=== PATIENT | female | born 1970 | race Caucasian/White ===

== ENCOUNTER 2019-05-12 13:19 | Inpatient (IN) ==
[2019-05-12] MEDS ORDERED: ACETAMINOPHEN 325 MG TAB PO PRN (16:19)
[2019-05-12] MEDS ORDERED: GLUCOSE 10 TABS/TUBE PO PRN (16:19)
[2019-05-12] MEDS ORDERED: CARBOHYDRATES FOR HYPOGLYCEMIA PO PRN (16:19)
[2019-05-12] MEDS ORDERED: GLUCAGON FOR INJ 1 MG VIAL SQ PRN (16:19)
[2019-05-12] MEDS ORDERED: GLUCOSE 40% GEL 15 GM TUBE PO PRN (16:19)
[2019-05-12] MEDS ORDERED: DEXTROSE 50% 50 ML SYRINGE IV PRN (16:19)
[2019-05-12] MEDS ORDERED: ONDANSETRON INJ 2 MG/ML 2 ML VIAL IV PRN (16:19)
[2019-05-12] MEDS ORDERED: PATIENT'S ALLERGY INFO NEEDS ENTERED SCH (16:30)
--- NOTE | 2019-05-12 16:45 | History & Physical Report ---
Date of Service May 12, 2019 Assessment & Plan (1) Seizure: -Admit to [facility] -Neurology consulted for 3 seizure like events which occurred within the past 24 hours, likely will need EEG -Seizure precautions -Patient reports never having seizure-like activity in the past, currently with postictal fatigue -Check EKG -CT of the head/brain being uploaded into PACS system for review -Check MRI brain with multiple seizure with history of hypertension, blurred vision -Checking CBC, PRP, A1c, LFT, lipids for completeness -Check tox screen (2) Hypertension: -Continue metoprolol and HCTZ (3) Obesity: -Diet and exercise to be encouraged upon discharge -BMI = 36 (4) Tobacco abuse disorder: -Patient very adamant about smoking a cigarette during her admission, I verbalized with her during our meeting that it would be against hospital policy, unsafe for her, and that she would not be walked out by a staff member off the premises to have a cigarette. (5) Fibromyalgia: - Has previously tried cymbalta but she reports "did not like the way it made me feel, it messed with my head" - Hold ibuprofen as was taking very high dose as outpatient routinely. (6) DVT prophylaxis: - Teds, ambulatory CODE: FULL Dispo: From home, discharge in 1-2 days. History of Present Illness Primary Care Provider: Vitaliy Hill This is a 49 yo F with PMHx of HTN, obesity, fibromyalgia, who presents as a direct admission from [facility] for acute onset of seizure disorder. Patient notes that she developed a blurred/fuzzy vision 1 night ago while she was working. 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 Patient notes that she was walking outside and developed acute onset of lightheadedness but does not remember much afterwards. This event was witnessed by a coworker who is not present. Patient was taken to the [place] [facility] where she was worked up with a CT of the head/brain which were reported to kee per ER attending from OSH. They were in the works with getting her bed placement at [facility], and [facility] due to [facility], but the patient left AMA as "it was taking too long". In reports from outside hospital it is likely that the patient wanted to smoke at that point in time and that is when she left AMA. Upon leaving she was at home with her , and had recurrence of her symptoms where she had issues with her vision and cannot remember anything afterwards. She was brought back by ambulance to the [facility] and has been transferred to our facility as they do not have neurology, no beds available at other facilities. She reports that she is very tired currently, but is sitting in bed reading without difficulty. She denies any headache, lightheadedness, dizziness visual disturbances, nausea, vomiting or other myalgias or pains compared to her baseline. She reports taking 600 to 800 mg of ibuprofen upwards of every 4 hours at home. She denies any GI bleeding hx. patient denies any history of seizure disorder in the past. She does run report that she has been struggling with high blood pressure intermittently over the last month. SBP = 160-180 over DBP = 100, she has been using metoprolol tartrate 100 mg twice daily and HCTZ as needed. her PCP has been concerned for renal issues, and has been scheduled for outpatient renal ultrasound for further evaluation. The patient is hungry and requesting chocolate milk, she is also very adamant that she needs to smoke a cigarette currently. She reports that "I will smoke a cigarette" and is unwilling to comply with hospital rules and use a nicotine patch despite my conversation with her-this included that [facility] is a smoke-free facility, it would be unsafe for her with history of seizures to walk outside the hospital and smoke a cigarette, and that she cannot have a family member walked her off the premises and then come back to complete her work-up for seizure. She in fact is so upset with me at the end of our conversation that she got up and walked into the bathroom, told me to leave, and will not open the door. I discussed with nursing that she is allowed to have a diet whenever she chooses to do so and that I will order a nicotine patch so that it is available if she chooses to use it. Allergies Allergy/AdvReac Type Severity Reaction Status Date / Time egg Allergy Unknown Unknown Verified 05/12/19 16:44 Home Medications Home Medications Medication Instructions Recorded Confirmed Type Trulicity 1.5 mg SUBCUT WK 05/12/19 05/12/19 History hydrochlorothiazide 25 mg PO DAILY PRN 05/12/19 05/12/19 History ibuprofen 600 mg PO Q6 PRN 05/12/19 05/12/19 History metoprolol tartrate 100 mg PO BID 05/12/19 05/12/19 History vit D3-folic [id number] 05/12/19 History Past Med/Surg History Family History (Updated 05/12/19 @ 16:42 by Astrid Lyles PA-C) Mother Breast cancer Grandfather (Paternal) Diabetes Father Cancer Social History (Updated 05/12/19 @ 16:43 by Astrid Lyles PA-C) Preferred Language: Bulgarian Communication Ability: Effective Beliefs That Will Affect Care: None marital status: Current Living Situation: Spouse current occupational status: employed Feels Safe at Home: Yes Safety Concerns: Feels Safe At This Time Smoking Status: Current every day smoker Tobacco Type: cigarettes ; packs per day: 0.5 ; Do You Dip or Chew Tobacco: No ; Second Hand Exposure: Yes ; Tobacco Cessation Education Requested by Patient: No Hx Alcohol Use: Yes Alcohol type: wine Alcohol Intake Frequency: Holidays/Special Occasions Hx Substance Use: No Review of Systems Review of Systems: Constitutional: No fever, sweats or chills Eyes: No diplopia, no worsening or blurred vision ENT: normal hearing, no trouble swallowing Respiratory: No cough, sputum, dyspnea at rest or on exertion Cardiovascular: No chest pain, tightness or palpitations Abdomen: No pain, nausea, vomiting, diarrhea or constipation Musculoskeletal: No joint pain, calf pain, swelling Neurologic: No weakness, numbness/tingling, or balance problems Psychiatric: No anxiety or depression Skin: No rash or itch Physical Exam Physical Exam: General: awake, alert, no apparent distress, + obese Head: Normocephalic, atraumatic ENT: PERRL, EOMI, no pharyngeal exudate, mucous membranes moist Chest: Diminished breath sounds on auscultation but no adventitious sounds,, on room air Cardiac: Regular rate and rhythm, no murmur, no JVD, normal peripheral pulses, good capillary refill Abdominal: NABS x 4 quadrants, soft, nontender to palpation, no rebound, guarding or tenderness Extremities: Normal inspection, no peripheral edema or erythema, calfs nontender to palpation Psych: Normal mood and affect Neuro: AAO x 3, strength intact bilaterally and related 5/5, no motor deficits, speech is clear, no peripheral sensory deficits Skin: no rash or erythema Results & Data Vital Signs (Past 12 Hours) Vital Signs Temp Pulse Resp BP Pulse Ox 05/12/19 16:02 36.8 C 111 H 20 159/79 H 96 05/12/19 14:53 37.1 C 109 H 156/95 H Code Status & VTE Plan Code Status Full code-discussed with the patient at bedside Supervising Physician Co-Signing Physician Notes Patient seen and examined ,chart reviewed, case discussed with JANICE Lyles and I agree with her assessment and plan as above. Briefly, 49yo F p/w seizures MRI with ?subacute cortical CVA vs demyelinating disease Exam - patient afebrile, HD stable, NAD Neurologically intact, no deficits Assessment/Plan: -Will transfer to med/tele -Obtain CTA head and neck -Neuro consult appreciated -Hold Metoprolol fo now to allow for permissive HTN -Check lipids -ASA 81mg po daily -Remainder of plan as above PG Care Time/CCT Total # of Minutes Spent Total Time Spent with Patient: Total time spent is greater than 50% in coordination of care (as documented) at patient's floor/unit and/or counseling patient:
[2019-05-12] MEDS ORDERED: NICOTINE 14 MG/24 HR PATCH TD ONE (16:50)
[2019-05-12] MEDS ORDERED: NICOTINE 14 MG/24 HR PATCH TD PRN (16:54)
[2019-05-12] MEDS ORDERED: NON-FORMULARY MEDICATION (Hydrochlorothiazide 25 MG) PO PRN (16:55)
[2019-05-12 16:57] LABS: Basophils # (auto) 0.01 K/uL (0-0.2); Basophils % (auto) 0.1 %; Eosinophils # (auto) 0.05 K/uL (0-0.5); Eosinophils % (auto) 0.7 %; Hematocrit (blood only) 44.6 % (37-47); Hemoglobin 15.5 g/dL (12.0-16.0); Immature Granulocytes # (auto) 0.01 K/uL (0.00-0.02); Immature Granulocytes % (auto) 0.1 %; Lymphocytes # (auto) 1.49 K/uL (1.2-3.4); Lymphocytes % (auto) 21.8 %; Mean Corpuscular Hemoglobin 28.1 pg (25-34); Mean Corpuscular Volume 80.9 fL (80-100); Mean Platelet Volume 9.7 fL (7.4-10.4); Monocytes # (auto) 0.65 K/uL (0.11-0.59); Monocytes % (auto) 9.5 %; Neutrophils # (auto) 4.64 K/uL (1.4-6.5); Neutrophils % (auto) 67.8 %; Platelet Count 151 K/uL (130-400); RDW Coefficient of Variation 13.2 % (11.5-14.5); RDW Standard Deviation 38.6 fL (36.4-46.3); Red Blood Count 5.51 M/uL (4.2-5.4); White Blood Count 6.85 K/uL (4.8-10.8)
[2019-05-12 16:59] LABS: Mean Corpuscular Hgb Conc 34.8 g/dL (32-36)
[2019-05-12 17:22] LABS: Alanine Aminotransferase 57 U/L (12-78); Albumin Globulin Ratio 0.9 (0.9-2); Albumin Level 3.6 gm/dl (3.4-5.0); Alkaline Phosphatase 100 U/L (45-117); Aspartate Aminotransferase 15 U/L (15-37); BUN Creatinine Ratio 18.3 (10-20); Bilirubin Direct < 0.1 mg/dl (0-0.2); Bilirubin,Total 0.7 mg/dl (0.2-1); Blood Urea Nitrogen 16 mg/dl (7-18); Calcium 9.1 mg/dl (8.5-10.1); Carbon Dioxide 24 mmol/L (21-32); Chloride 104 mmol/L (98-107); Creatinine Clr Calc Pharmacy 82.2 ml/min; Est GFR (African American) 92.6; Est GFR (Non-African American) 79.9; Globulin 3.9 gm/dl (2.5-4.0); Glucose 357 mg/dl (70-99); Magnesium 1.8 mg/dl (1.8-2.4); Phosphorus 3.1 mg/dl (2.5-4.9); Sodium 137 mmol/L (136-145); Total Protein 7.5 gm/dl (6.4-8.2)
[2019-05-12 17:35] LABS: Beta-Hydroxybutyrate 0.95 mg/dl (0.2-2.81)
[2019-05-12] MEDS: INSULIN ASPART 100 UNITS/ML 3 ML PEN SC SCH ×2 (17:39→21:17)
[2019-05-12] MEDS: TRULICITY~ORDER AWAITING ACTION SCH (17:40)
[2019-05-12] MEDS ORDERED: GADOBUTROL 65ML VIAL IV PRN (19:30)
--- NOTE | 2019-05-12 20:03 | Magnetic Resonance Report ---
MR brain seizure wo/w con CLINICAL HISTORY: Seizure x 3 mental status change COMPARISON STUDY: No previous studies for comparison. TECHNIQUE: Utilizing a 1.5 Ktaia magnet and dedicated coil, multiplanar, multiecho imaging of the br ain was performed pre and postcontrast administration. IV administration of 9 mL of Gadavist contras t was uneventful. Thin cut coronal T2 imaging was performed according to seizure protocol. FINDINGS: Diffusion images show several small foci of increased signal over the right parietal convex ity. These appear to be cortical and/or subcortical. There are 2 small foci of moderate increase in s ignal medial/superior to the occipital horn right lateral ventricle. Transaxial T2 images show the ventricular system to be midline. Sella and parasellar regions are unre markable. Coronal FLAIR images demonstrate several vague foci of increased signal in the optic radiation region s bilaterally as well as frontal and right superior parietal lobe regions. Postcontrast images demonstrate enhancing foci over the right parietal lobe region measuring 9 mm bes t seen on coronal image 14. A dural based focus measuring 1.5 cm is best seen coronal image 11. The a dditional foci of increased signal on the additional sequences do not suggest significant postcontras t enhancement. This pattern could be seen with subacute cortical infarcts. Other etiologies are not entirely exclude d such as a metastatic process or an active demyelinating disorder. The ventricular system again is m idline. The sella and parasellar regions are unremarkable. Internal auditory canals are symmetric. This study is compromised by severe patient motion. IMPRESSION: 1. Several foci of increased diffusion signal primarily within the right cerebral hemisphere as descr ibed. 2. At least 2 demonstrate postcontrast enhancement which may be indicative of subacute foci of infarc tion, versus the possibility of active foci edema of demyelination. 3. Additional foci of increased signal within the periventricular and deep white matter regions show no abnormal postcontrast enhancement. 4. Differential considerations must include subacute infarct of a variety of ages, combined with elevator attendant richard small vessel change, a demyelinating disorder with several active foci of demyelination, with the possibility of a metastatic process or other etiology impossible to entirely exclude. ACT 112: Negative or not required by law. The above report was generated using voice recognition software. It may contain grammatical, syntax or spelling errors. Electronically signed by: Josh Villaseñor M.D. 05/12/2019 8:01 PM
[2019-05-12] MEDS ORDERED: METOPROLOL TARTRATE 100 MG TAB PO SCH (21:00)
[2019-05-13] MEDS ORDERED: ASPIRIN 81 MG ECTAB PO STA (00:17)
[2019-05-13] MEDS: TRULICITY~ORDER AWAITING ACTION SCH ×2 (00:47→09:20)
[2019-05-13] MEDS ORDERED: OPTIRAY 320 125ml IV PRN (01:21)
--- NOTE | 2019-05-13 06:50 | CT Scan Report ---
CT angio neck with con, CT angio head w con CLINICAL HISTORY: 49 years-old Female with ?CVA. Acute strokelike symptoms COMPARISON STUDY: MRI brain May 12, 2019 TECHNIQUE: Following the IV administration of 117 mL of Optiray 320, CT angiogram of the head and nec k was performed from the aortic arch to the skull base. Images are reviewed in the axial, sagittal, a nd coronal planes. 3-D MIPS images are created and assessed. IV contrast was administered without com plication. All measurements were calculated based on NASCET criteria. A dose lowering technique was utilized adhering to the principles of ALARA. CT DOSE: 629.84 mGy.cm FINDINGS: The imaged opacified pulmonary arterial tree is unremarkable. There is mild atheromatous plaque at th e origin of the left subclavian artery which appears patent. Patent bilateral common carotid arteries . Moderate mixed plaque of the carotid bulbs results in 60% luminal narrowing at the origin of the ri ght ICA. There is less than 50% stenosis at the origin of the left ICA with a small ulcerative plaque , image 270 series 4. Calcified plaque of the cavernous and supraclinoid segments. There is less than 50% stenosis noted at the supraclinoid segment right ICA on image 405 series 4. Mostly mild multifoc al luminal narrowing about the bilateral middle cerebral arteries.. Anterior cerebral arteries are pa tent. Diminutive left A1 segment, likely developmental. Codominant vertebral arteries. There is a short segment area of high-grade stenosis at the distal V4 segment left vertebral artery (image 368 series 4) likely secondary to atheromatous plaque. 3 mm sacc ular outpouching involving the inferior wall of the proximal V3 segment right vertebral artery, image 320 series 4 and image 28 of series 401. Mild and moderate multifocal luminal narrowing throughout t he basilar artery. origin of the right posterior cerebral artery. Mostly mild multifocal lumina l narrowing noted throughout the bilateral posterior cerebral arteries. Cerebral venous sinuses are p atent. There is no abnormal intra-axial enhancement. Mild bilateral bronchial wall thickening. No pneumothorax. Homogeneous thyroid. Soft tissues of the n william are unremarkable. No acute calvarial fracture. Degenerative changes noted about the spine. Modera te disc space narrowing with spondylitic spurring and posterior disc osteophyte complex formation at C5-C6. IMPRESSION: 1. Moderate mixed plaque of the bilateral carotid bulbs results in 60% luminal narrowing at the origi n of the right ICA and less than 50% stenosis on the left. 2. Mild multifocal luminal narrowing of the bilateral middle cerebral arteries. 3. Short segment of high-grade stenosis involves the distal V4 segment left vertebral artery. 4. 3 mm saccular outpouching involving the inferior wall of the proximal V3 segment right vertebral a rtery suggests small aneurysm. 5. Mild multifocal luminal narrowing of the posterior circulation. Multiple findings were called/faxed to the floor nurses unit as above at time of dictation. ACT 112: Negative or not required by law. The above report was generated using voice recognition software. It may contain grammatical, syntax o r spelling errors. Electronically signed by: Derick Saunders M.D. 05/13/2019 6:48 AM
[2019-05-13 07:03] LABS: Hematocrit (blood only) 42.1 % (37-47); Hemoglobin 14.3 g/dL (12.0-16.0); Mean Corpuscular Hemoglobin 27.7 pg (25-34); Mean Corpuscular Volume 81.6 fL (80-100); Mean Platelet Volume 9.5 fL (7.4-10.4); Platelet Count 133 K/uL (130-400); RDW Coefficient of Variation 13.4 % (11.5-14.5); RDW Standard Deviation 39.8 fL (36.4-46.3); Red Blood Count 5.16 M/uL (4.2-5.4); White Blood Count 4.99 K/uL (4.8-10.8)
[2019-05-13 07:29] LABS: Albumin Level 3.1 gm/dl (3.4-5.0); BUN Creatinine Ratio 25.1 (10-20); Calcium 8.9 mg/dl (8.5-10.1); Creatinine Clr Calc Pharmacy 104.3 ml/min; Est GFR (African American) 118.8; Est GFR (Non-African American) 102.5; Potassium 4.1 mmol/L (3.5-5.1)
[2019-05-13 07:30] LABS: Estimated Average Glucose 252 mg/dl; Hemoglobin A1C 10.4 % (4.5-5.6)
[2019-05-13 07:32] LABS: Albumin Globulin Ratio 0.9 (0.9-2); Bilirubin,Total 0.5 mg/dl (0.2-1); Globulin 3.6 gm/dl (2.5-4.0); Total Protein 6.7 gm/dl (6.4-8.2)
--- NOTE | 2019-05-13 08:31 | Neurology Consultation ---
Date of Consultation May 13, 2019 Assessment & Plan (1) Acute CVA (cerebrovascular accident): (2) Seizure: (3) Carotid stenosis, bilateral: (4) Chronic cerebral ischemia: (5) Hypertension: (6) Diabetes: This patient has suffered acute and subacute small cerebral vascular accidents i n the right hemisphere, 1 in the middle cerebral artery territory and the other in the posterior cerebral artery territory. The timing of these is not clear , but the 1 with enhancement is likely subacute and 1 without enhancement is likely acute. She has no clinical accompaniment with these as her neurologic examination shows no focal neurologic signs, meningeal signs, or encephalopathy. Patient had 3 episodes May 12 that were called seizures. Although I cannot exclude partial seizure events stemming from her cerebral vascular disease, I am not convinced the spells were actually epileptogenic. EEG this morning was normal awake and light sleep. There are no focal findings or potentially epileptogenic discharges. Patient has significant vascular stenoses in the carotid 8 and vertebrals bilaterally. The etiology of the strokes may be thromboembolic from the right carotid (and/or right vertebral) system. She has some arterial stenoses in the vessels of the head as well (including the M1 segment on the right). 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 This is tiny and likely low risk for creating bleeding or other neurologic issues. She has mild diffuse old small vessel ischemic changes on MRI. 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 Metastases cannot be ruled out but these lesions do not have any edema or other characteristics. She has no history of cancer. Patient has multiple risk factors for stroke, including hypertension, diabetes, cigarette smoking, and dyslipidemia. Recommendations: 1. Echocardiogram to evaluate for source of emboli. 2. Chest x-ray 3. 81 mg aspirin tablet daily. 4. I see no need for initiating an anticonvulsant at this time. 5. Control blood pressure as you are doing, aiming for a mean arterial pressure of 95-100. 6. Controlled glucose better attempting to lower the hemoglobin A1c closer to 7.5 (initially). 7. Patient would be high dose statin candidate. 8. Discontinue cigarette smoking. 9. I see no need for an LP at this time. 10. She would need a follow-up MRI of the brain with/without contrast in 2 months to see the evolution of these lesions. I would be happy to see her as an outpatient for follow-up in 3-4 weeks. Otherwise follow-up in the next week with her primary care physician. Overall, I spent a total of 120 minutes with this case, including review of records, review of MRI and CT angiography films with Radiology, direct ev aluation the patient at bedside, and discussion of the case with the patient at bedside, RN at bedside, Layla Tello PA-C, Dr. Saunders, and Dr. Norwood, including differential diagnosis and treatment options. History of Present Illness Reason for Consultation: Patient is a 49-year-old, who I was asked to see at the request of Dr. Walden, for neurologic consultation regarding seizures and other issues. Requesting Physician: Dr. Walden Attending Physician: Tom Norwood History of Present Illness This patient has a long-standing (25+ years) of hypertension and cigarette smoking (half pack per day). She also has a 10+ year history of diabetes treated with oral medication. She has had fibromyalgia for over 20 years but no history of seizures, migraines, significant head trauma, meningitis or encephalitis, or heart disease. Patient has diffuse arthralgias in most joints bilaterally significant shoulder and neck pain chronically. She is not taking any pain medicine for her fibromyalgia/arthralgia pain. This patient has no history of seizures or syncopal spells in the past. She has no history of cancer or episodes of weakness, numbness, vision loss or other events over the years. Patient has had several episodes the sudden onset of blurry vision bilaterally accompanied by a left frontal steady headache lasting about half an hours. She gets some lightheadedness this but does not pass out. 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 At the time she felt reasonably well, as she recalls. Sometime after she got to work, around 0230, she had some blurry vision and lightheadedness. She went outside and apparently had an event that was described as a "seizure", although I have no details regarding this. She was taken to [facility] emergency room where a CT scan of the head was apparently unremarkable. Around 0600 she was standing at a desk when her head and eyes turned to the left and she walked in a [place] to the left for about 15-20 seconds. Apparently, her who I talked to about this event, said that she would fixate her eyes on him for seconds and then go back turning to the left. She would mumble some but not be very clear or follow commands. The patient has no recall of the event. She was sat down and after couple minutes started talking again and was confused for a little bit but then back to normal. They wanted to transfer her, but there were no beds in [place] or [place] and the patient, tired of waiting, left AMA. She got home (remembering it was light out only) and had a 3rd episode at home, according to the , around 0800. He said that she was standing turning her head and eyes to the left looking in a fixed up in left gaze mumbling but not following commands. Her left arm was held out and this lasted for a few minutes. She was sitting down on the couch at the time. She will was then taken to [facility] again. They transferred her here. She is afebrile and her admission blood pressure was 156/95 with a pulse of 109. O2 saturation was 96%. This morning blood pressure is 131/84. CBC was unremarkable and glucose was elevated at 251 and today was 236. Hemoglobin A1c was 10.4. Triglycerides were 163 and total cholesterol 181. MRI of the brain showed multiple acute/subacute right hemispheric tiny infarcts, 1 in the middle cerebral artery distribution and 1 in the posterior cerebral artery distribution. One enhances in the other does not. There is no mass effect or edema. The MRI also shows mild scattered tiny nonspecific old small vessel ischemic disease as well. I reviewed these MRI films with Dr. Saunders. CT angiography of the head and neck were remarkable for a 60% stenosis of the origin of the right internal carotid artery, less than 50% at the origin of the left internal carotid artery, high-grade stenosis in the left V4 segment and a small (3 mm) aneurysm in the right V3 segment. There is stenoses in the M1 segment on the right as well as in the posterior cerebral arteries. I reviewed these films with Dr. Saunders also. She feels back to baseline this morning although she is a little tired. She has no weakness or numbness, speech or vision problem and her thinking is clear. She has no history of incontinence or depression. Allergies Allergy/AdvReac Type Severity Reaction Status Date / Time egg Allergy Unknown Unknown Verified 05/12/19 16:44 Home Medications Home Medications Medication Instructions Recorded Confirmed Type Trulicity 1.5 mg SUBCUT WK 05/12/19 05/12/19 History hydrochlorothiazide 25 mg PO DAILY PRN 05/12/19 05/12/19 History ibuprofen 600 mg PO Q6 PRN 05/12/19 05/12/19 History metoprolol tartrate 100 mg PO BID 05/12/19 05/12/19 History vit D3-folic [id number] 05/12/19 History Patient History Medical History (Updated 05/13/19 @ 09:46 by Edgar Stone III, MD) Diabetes Fibromyalgia Hypertension Surgical History [place] teeth removed Family History Mother , age 55 of breast cancer Breast cancer Grandfather (Paternal) Diabetes Father Cancer Prostate cancer Hypertension Social History Preferred Language: Croatian Communication Ability: Effective Beliefs That Will Affect Care: None marital status: Current Living Situation: Spouse current occupational status: employed 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 Hx Substance Use: No Review of Systems Constitutional: + fatigue; no fever and no weakness Eyes: no diplopia, no eye pain and no worsening vision Ear, Nose, Mouth, Throat: no ear pain, no tinnitus, no hearing loss, no dizz iness, no snoring, no hoarseness and no dysphagia Respiratory: no cough and no dyspnea Cardiovascular: no chest pain, no palpitations and no lightheadedness Gastrointestinal: no abdominal pain, no nausea and no vomiting Genitourinary: no dysuria, no urinary frequency and no urinary incontinence Musculoskeletal: + neck pain and + joint pain; no back pain, no radicular pain and no myalgia Integumentary: no rash and no lesions Neurologic: no gait abnormality, no localized weakness, no generalized weakness, no tingling, no numbness, no tremor(s), no abnormal movements, no headache(s), no abnormal speech, no confusion and no memory loss Psychiatric: no depression, no irritability, no anxiety, no difficulty concentrating, no confusion and no hallucinations Endocrine: + fatigue; no flushing Hematologic / Lymphatic: no easy bleeding and no easy bruising Allergy / Immunological: no urticaria and no problem reported Physical Exam Physical Exam: The patient is right-handed. Pulses in the 80s to 90 since admission and no cardiac dysrhythmia. The patient is awake, alert, and attentive. Speech is normal without any aphasia or dysarthria. She can name objects, repeat phrases, and has normal spontaneous speech. Mentation and thought processes are intact, with orientation to person, place and time, and normal fund of knowledge. Attention and concentration are normal. Mood and affect are normal and appropriate. General appearance and grooming are normal. Short and long-term memory are intact. The discs are sharp with positive venous pulsations bilaterally. She has a mild lower cataract formation on the right. There are no exudates, hemorrhages, or blood vessel changes seen. Pupils are 4 mm bilaterally and reactive to light. Extraocular eye muscles are intact without nystagmus. Visual acuity and visual burnette seem normal grossly to confrontation. There are no deficits to sensation in the face in all 3 distributions of the fifth cranial nerve bilaterally. Corneal reflexes are positive bilaterally. Facial strength and symmetry was normal bilaterally. Hearing seems normal to whisper and finger rub bilaterally. Palate moves well without asymmetry. There is normal sternocleidomastoid and trapezius (shoulder shrug) strength bilaterally. Tongue is midline with good strength bilaterally. Neck has a full range of motion without discomfort. There are no cervical bruits bilaterally. There are no cranial or ocular bruits. Heart is without murmur. There is a regular rhythm and rate. Cervical, thoracic, and lumbar spine are nontender to palpation. Gait is narrow based, with good arm swing, turns, and stance. Balance is normal eyes open or closed. With outstretched arms there is no drift. There are no resting, postural, or action tremors. There is no ataxia with finger to nose testing. There is good facility in the hands. No other abnormal involuntary movements are noted. Motor strength is 5/5 diffusely in the arms bilaterally including deltoids, biceps, triceps, brachioradialis, wrist flexors and extensors, digital intern, and intrinsic hand muscles. Motor strength is 5/5 diffusely in the legs bilaterally including hip flexors, quadriceps, hamstrings, gastrocnemius, tibialis anterior, tibialis posterior, and Peroneii muscles. Toe extensors are normal and there is good bulk in the extensor digitorum brevis muscles bilaterally. The limbs have good tone without rigidity or spasticity. There is no atrophy noted in the muscles. Muscle bulk is normal, there is no tenderness to palpation, no myotonia to percussion, and no fasciculations seen. Sensory examination is intact to touch and pin throughout all 4 limbs diffusely. Reflexes are 1/4 in the biceps, triceps, brachioradialis, quadriceps, and Achilles tendons bilaterally. There is no clonus bilaterally. Toes are downgoing with plantar stimulation bilaterally. Peripheral pulses are present and of normal quality distally in all 4 limbs. There is no peripheral edema noted in the limbs. Results & Data Vital Signs (Past 12 Hours) Vital Signs Temp Pulse Pulse Resp BP Pulse Ox 05/13/19 07:37 37.2 C 87 18 131/84 95 05/13/19 02:50 97 H 05/12/19 23:40 37.2 C 105 H 17 127/76 95 05/12/19 21:00 113 H 126/82 96 Diagnostic Findings MR brain seizure wo/w con CLINICAL HISTORY: Seizure x 3 mental status change COMPARISON STUDY: No previous studies for comparison. TECHNIQUE: Utilizing a 1.5 Katia magnet and dedicated coil, multiplanar, multiecho imaging of the brain was performed pre and postcontrast administration. IV administration of 9 mL of Gadavist contrast was uneventful. Thin cut coronal T2 imaging was performed according to seizure protocol. FINDINGS: Diffusion images show several small foci of increased signal over the right parietal convexity. These appear to be cortical and/or subcortical. There are 2 small foci of moderate increase in signal medial/superior to the occipital horn right lateral ventricle. Transaxial T2 images show the ventricular system to be midline. Sella and parasellar regions are unremarkable. Coronal FLAIR images demonstrate several vague foci of increased signal in the optic radiation regions bilaterally as well as frontal and right superior parietal lobe regions. Postcontrast images demonstrate enhancing foci over the right parietal lobe region measuring 9 mm best seen on coronal image 14. A dural based focus measuring 1.5 cm is best seen coronal image 11. The additional foci of increased signal on the additional sequences do not suggest significant postcontrast enhancement. This pattern could be seen with subacute cortical infarcts. Other etiologies are not entirely excluded such as a metastatic process or an active demyelinating disorder. The ventricular system again is midline. The sella and parasellar regions are unremarkable. Internal auditory canals are symmetric. This study is compromised by severe patient motion. IMPRESSION: 1. Several foci of increased diffusion signal primarily within the right cerebral hemisphere as described. 2. At least 2 demonstrate postcontrast enhancement which may be indicative of subacute foci of infarction, versus the possibility of active foci edema of demyelination. 3. Additional foci of increased signal within the periventricular and deep white matter regions show no abnormal postcontrast enhancement. 4. Differential considerations must include subacute infarct of a variety of ages, combined with chronic small vessel change, a demyelinating disorder with several active foci of demyelination, with the possibility of a metastatic process or other etiology impossible to entirely exclude. ACT 112: Negative or not required by law. The above report was generated using voice recognition software. It may contain grammatical, syntax or spelling errors. Electronically signed by: Josh Villaseñor M.D. PG Care Time/CCT Total # of Minutes Spent Total Time Spent with Patient: Total time spent is greater than 50% in coordination of care (as documented) at patient's floor/unit and/or counseling patient:
--- NOTE | 2019-05-13 08:47 | Electroencephalogram ---
EEG Procedure Note Date of Service May 13, 2019 Start / End Times Start Time: 828 End Time: 848 Referring Physician Layla Tello PA-C History Patient is a 49-year-old who had 3 seizure-like episodes May 12 on no anticonvulsants currently Home Medication List Home Medications Medication Instructions Recorded Confirmed Type Trulicity 1.5 mg SUBCUT WK 05/12/19 05/12/19 History hydrochlorothiazide 25 mg PO DAILY PRN 05/12/19 05/12/19 History ibuprofen 600 mg PO Q6 PRN 05/12/19 05/12/19 History metoprolol tartrate 100 mg PO BID 05/12/19 05/12/19 History vit D3-folic [id number] 05/12/19 History Inpatient Medication List Gadobutrol (Gadavist 65ml) 9 ml IV ONCE PRN PRN Reason: Interaction Checking Stop: 05/16/19 19:29 Last Admin: 05/12/19 19:30 Dose: 9 ml Documented by: [id number] Insulin Aspart (Novolog Flexpen) 0 units SC ACHS [facility] Stop: 06/11/19 16:29 Last Admin: 05/12/19 21:17 Dose: 2 units Documented by: [id number] Cosigned by: [id number] Admin: 05/12/19 17:39 Dose: 11 units Documented by: [id number] Cosigned by: [id number] Ioversol (Optiray 320 125ml) 125 ml IV ONCE PRN PRN Reason: Interaction Checking Stop: 05/17/19 01:20 Last Admin: 05/13/19 01:22 Dose: 117 ml Documented by: [id number] Miscellaneous (Order Awaiting Action) 1 ea N/A QS [facility] Stop: 06/11/19 16:59 Last Admin: 05/13/19 00:47 Dose: Not Given Documented by: [id number] Admin: 05/12/19 17:40 Dose: Not Given Documented by: [id number] Discontinued Medications Aspirin (Ecotrin Ectab) 81 mg PO NOW STA Stop: 05/13/19 00:18 Last Admin: 05/13/19 00:53 Dose: 81 mg Documented by: [id number] Metoprolol Tartrate (Lopressor) 100 mg PO BID PAUL Stop: 06/11/19 20:59 Last Admin: 05/12/19 21:16 Dose: 100 mg Documented by: [id number] Nicotine (Nicoderm Cq) 14 mg TD NOW ONE Stop: 05/12/19 16:51 Last Admin: 05/12/19 17:40 Dose: Not Given Documented by: [id number] Description This is a 21 electrode EEG with a single channel dedicated to limited EKG. The electrodes were placed in accordance with the International 10-20 system. Interpretation The predominant background activity consists of a somewhat irregular 9 Hz activity, of up to 40 mV in amplitude,seen symmetrically distributed over the posterior head regions bilaterally, spreading anteriorly bilaterally and symmetrically. This activity attenuates nicely with eye-opening and other alerting procedures. Photic stimulation was performed and elicited no change in the background activity and no abnormal responses were seen. Hyperventilation was not performed. A minimal amount of muscle and movement artifact activity contaminated the recording and did not hinder interpretation to any significant degree. Throughout the waking portion of the recording, no focal abnormalities, abnormal slow activity, or potentially epileptogenic discharges are seen. The patient entered the drowsy state and brief periods of stage II sleep with no further activation. In summary, this EEG was normal during wakefulness and light sleep. No focal abnormalities, potentially epileptogenic discharges, or abnormal slow activity was seen. Clinical Correlation The abscence of potentially epileptogenic activity does not exclude a seizure disorder, since interictally, EEGs can be normal. Clinical correlation is required. [facility] EEG Procedure Codes Indication for Procedure (1) Seizure: Neurology Neurology: [id number] EEG include record awake & sleepy
[2019-05-13] MEDS: INSULIN ASPART 100 UNITS/ML 3 ML PEN SC SCH ×4 (09:20→20:38)
[2019-05-13] MEDS: ASPIRIN 81 MG ECTAB PO SCH (09:21)
--- NOTE | 2019-05-13 12:15 | XRay Report ---
SINGLE VIEW CHEST CLINICAL HISTORY: Seizure. FINDINGS: 2 AP, portable, upright chest radiographs are compared to study dated 05/12/2019. The examina tion is degraded by portable technique and patient rotation. The cardiomediastinal silhouette is unre markable. There are low lung volumes with bibasilar atelectasis. No airspace consolidation or large p leural effusion is identified. No pneumothorax is seen. The skeletal structures are osteopenic. The b candice thorax is grossly intact. IMPRESSION: Low lung volumes with no active disease in the chest. ACT 112: Negative or not required by law. Electronically signed by: Dick Romero M.D. 05/13/2019 12:13 PM
[2019-05-13] MEDS ORDERED: hydroCHLOROthiazide 25 MG TAB PO STA (12:46)
[2019-05-13] MEDS: METOPROLOL TARTRATE 100 MG TAB PO SCH ×2 (13:50→20:38)
--- NOTE | 2019-05-13 16:14 | Hospitalist Progress Note ---
Date of Service May 13, 2019 Assessment & Plan (1) Seizure: * Patient reports never having seizure-like activity in the past, currently with postictal fatigue * ??Epileptogenic vs thromboembolic acute/subacute vascular accidents --> * Neurology consulted for 3 seizure like events which occurred within the past 24 hours-- EEG ordered this morning -- no focal abnormalities (although unable to exclude partial seizure events stemming from cerebral vascular disease) * --->> initially not started on Keppra, but initiated following repeat event this afternoon --> Keppra 500mg BID -- if another event occurs, would transfer for 24hour EEG * Seizure precautions * EKG -- NSR, 80-90s on telemetry * CT Head/Neck, MRI brain --> acute and subacute small cerebral vascular accidents in the right hemisphere, 1 in the middle cerebral artery territory and the other in the posterior cerebral artery territory. 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 This is tiny and likely low risk for creating bleeding or other neurologic issues. She has mild diffuse old small vessel ischemic changes on MRI. I do not believe the MRI is independent sales representative of demyelinating disease (she these lesions are not consistent with this and she has no clinical history to support demyelinating disease). * Lipid panel-- Cholesterol wnl, although triglycerides elevated at 163 -- given findings/plaque on imaging and recommendations from Neuro, will initiate statin therapy -- atorvastatin 40mg, given patient not willing to do high dose d/t side effects and already with diffuse myalgias * Tox screen negative * Continue daily ASA 81mg * Prolactin obtain post-seizure today -- 4.53ng/ml (2) Diabetes: * Hold home Trulicity * SSI while inpatient * A1c 10.4 -- saw grinder -- patient unable to tolerate metformin, Januvia in the past, per patient --> she had been on insulin in the past when she followed with Dr. Wellington, but states "it didn't help much" and she had been unable to obtain a glucometer as it is not covered by her insurance * Pharmacy consult -- tightened CF/CR to 20/7, added lantus 20units daily (3) Hypertension: * Continue metoprolol 100mg BID * Given 1x HCTZ today -- patient takes prn as outpatient * Given DM, if BP continues to be elevated, patient may benefit from LEONEL/ARB vs her prn HCTZ (4) Obesity: * Diet and exercise to be encouraged upon discharge * BMI = 36 (5) Tobacco abuse disorder: * Smoking cessation * Nicotine gum or patch encouraged (6) Fibromyalgia: * Previously tried cymbalta but she reports "did not like the way it made me feel, it messed with my head" * Hold ibuprofen as was taking very high dose as outpatient routinely. May have tylenol as needed for pain -- per patient, she had been told to avoid that in the past because her liver ezymes were elevated -- currently AST/ALT -- continue to monitor (7) DVT prophylaxis: * Teds * Ambulation encouraged Dispo: if patient experiences another episode would transfer for 24hour EEG at tertiary facility Supervising Physician Co-Signing Physician Notes Attending Attestation and Progress note: Pt seen/examined, chart reviewed, care plan d/w JANICE Tello. I agree w/ the gates components of her documentation. Code purple was called today after patient was noted to have altered mental status and ?seizure activity. Upon my arrival Layla CAMACHO was present as was a large number of nurses, respiratory, critical care, etc. She was not talking initially, and was staring off to the left. Eyes were deviated upward as well. When her name was called she did answer, but it was one-word answers. Her BSG was normal and vitals showed tachycardia with high BP. She kept shifting in the bed. This went on for several minutes. Ultimately she started to follow commands - perhaps 5+ minutes after my arrival. exam: initially - eyes deviated up and leftward, shifting in bed multiple times; no tonic-clonic activity of any limb following the event - gen - NAD, obese eyes - PERRL; no nystagmus mouth - MMM heart - RRR, s1 s2 lungs - CTA b/l abd - soft NT ext - no edema neuro - strength / all 4 extremities A/P: 1. s/p code purple today for altered MS and ?seizure activity 2. possible recurrent seizures - complex-partial events? 3. multiple acute/subacute strokes on MRI brain 4. carotid stenosis 5. hyperlipidemia 6. uncontrolled T2DM 7. tobacco dependence 8. vertebral artery aneurysm Agree with initiation of keppra 500mg BID for #2. If events recur - transfer to tertiary care center for consideration of 24-hour EEG? Asa, statin for secondary stroke prevention. Tobacco cessation desperately needed. BP control. Will need PT, OT, speech evals due to #3 above. Care was d/w Dr Harley Stone from neurology today. Total critical care time 60 minutes including coordinating care with neurology, attending yossi carlson, etc. Tom Norwood MD Subjective Patient evaluated multiple times throughout day. In the morning, she felt like her baseline self, and was awaiting evaluation by Neurology. Patient was code aldo as she was unresponsive for nursing and unable to follow commands when she started to respond. It was noted that her gaze was up and to the left and she was unable to follow with her eyes. Of note, when repositioning patient to listen to posterior lung field, patient with good state archivist strength. Intermittently would answer questions. Upon revisiting room in the afternoon, patient was up at the side of the bed eating dinner. She states her sister is upset with her because she is supposed to be her ride and they had an argument and she left. The patient is frustrated and states this has been happening and she has no recollection of the events. Per patient, she did have an episode on May 11 while working and was told that she fell by other staff members. She denies any dizziness or "blacking out" prior to the event and she does not remember falling or the events after. She states she had been following with Dr. Hill's office and see's his JANICE Pretty, and is questioning why no one has mentioned her neck pain, which she states "everyone says is my fibromyalgia and doesn't know" and she questions why no one has obtained a renal ultrasound for a possible mass on her kidneys that causes her BP to be so high. She denies any current visual or speech problems, weakness, numbness or tingling. Review of Systems Review of Systems: All systems reviewed & are unremarkable except as noted in HPI & below Physical Exam Constitutional: WD/WN, vitals as above no acute distress ENMT: external ear and nose normal, oropharynx normal Neck: trachea midline, no thyromegaly Respiratory: normal respiratory effort, lungs clear to auscultation Cardiovascular: RRR, no murmur, no edema Gastrointestinal (Abdomen): normal bowel sounds, soft, nontender, no hepatosplenomegaly Musculoskeletal: no cyanosis or clubbing, extremities motor strength 5/5 tender to palpation cervical spinous processes Skin: no rashes, warm and dry Neurologic: patellar DTR's 2+ bilat, sensation intact Psychiatric: A+Ox3, euthymic affect Lymphatic: no cervical or axillary lymphadenopathy Results & Data Vital Signs (Past 12 Hours) Vital Signs Temp Pulse Resp BP Pulse Ox 05/13/19 15:41 37.1 C 87 16 120/68 95 05/13/19 11:26 104 H 176/101 H 95 05/13/19 07:37 37.2 C 87 18 131/84 95 Laboratory Results 05/13/19 05/13/19 05/13/19 Range/Units 11:25 11:10 07:34 WBC (4.8-10.8) K/uL RBC (4.2-5.4) M/uL Hgb (12.0-16.0) g/dL Hct (37-47) % MCV (80-100) fL MCH (25-34) pg MCHC (32-36) g/dL RDW Std Deviation (36.4-46.3) fL RDW Coeff of Rossana (11.5-14.5) % Plt Count (130-400) K/uL MPV (7.4-10.4) fL Immature Gran % (Auto) % Neut % (Auto) % Lymph % (Auto) % [place] % (Auto) % Eos % (Auto) % Baso % (Auto) % Immature Gran # (Auto) (0.00-0.02) K/uL Neut # (Auto) (1.4-6.5) K/uL Lymph # (Auto) (1.2-3.4) K/uL [place] # (Auto) (0.11-0.59) K/uL Eos # (Auto) (0-0.5) K/uL Baso # (Auto) (0-0.2) K/uL Sodium (136-145) mmol/L Potassium (3.5-5.1) mmol/L Chloride (98-107) mmol/L Carbon Dioxide (21-32) mmol/L Anion Gap (3-11) BUN (7-18) mg/dl Creatinine (0.6-1.2) mg/dl Est Cr Clr Drug Dosing ml/min Est GFR ( Amer) Est GFR (Non-Af Amer) BUN/Creatinine Ratio (10-20) Glucose (70-99) mg/dl POC Glucose 236 H 236 H (70-99) Estimat Average Glucose mg/dl Hemoglobin A1c (4.5-5.6) % Calcium (8.5-10.1) mg/dl Phosphorus (2.5-4.9) mg/dl Magnesium (1.8-2.4) mg/dl Total Bilirubin (0.2-1) mg/dl Direct Bilirubin (0-0.2) mg/dl AST (15-37) U/L ALT (12-78) U/L Alkaline Phosphatase (45-117) U/L Total Protein (6.4-8.2) gm/dl Albumin (3.4-5.0) gm/dl Globulin (2.5-4.0) gm/dl Albumin/Globulin Ratio (0.9-2) Triglycerides (0-150) mg/dl Cholesterol (0-200) mg/dl LDL Cholesterol, Calc mg/dl VLDL Cholesterol, Calc mg/dl HDL Cholesterol mg/dl Cholesterol/HDL Ratio Beta-Hydroxybutyric Acd (0.2-2.81) mg/dl Prolactin 4.53 ng/ml 05/13/19 05/13/19 05/13/19 Range/Units 06:39 06:39 06:39 WBC 4.99 (4.8-10.8) K/uL RBC 5.16 (4.2-5.4) M/uL Hgb 14.3 (12.0-16.0) g/dL Hct 42.1 (37-47) % MCV 81.6 (80-100) fL MCH 27.7 (25-34) pg MCHC 34.0 (32-36) g/dL RDW Std Deviation 39.8 (36.4-46.3) fL RDW Coeff of Rossana 13.4 (11.5-14.5) % Plt Count 133 (130-400) K/uL MPV 9.5 (7.4-10.4) fL Immature Gran % (Auto) % Neut % (Auto) % Lymph % (Auto) % [place] % (Auto) % Eos % (Auto) % Baso % (Auto) % Immature Gran # (Auto) (0.00-0.02) K/uL Neut # (Auto) (1.4-6.5) K/uL Lymph # (Auto) (1.2-3.4) K/uL [place] # (Auto) (0.11-0.59) K/uL Eos # (Auto) (0-0.5) K/uL Baso # (Auto) (0-0.2) K/uL Sodium 139 (136-145) mmol/L Potassium 4.1 (3.5-5.1) mmol/L Chloride 107 (98-107) mmol/L Carbon Dioxide 25 (21-32) mmol/L Anion Gap 7.0 (3-11) BUN 17 (7-18) mg/dl Creatinine 0.67 (0.6-1.2) mg/dl Est Cr Clr Drug Dosing 104.3 ml/min Est GFR ( Amer) 118.8 Est GFR (Non-Af Amer) 102.5 BUN/Creatinine Ratio 25.1 H (10-20) Glucose 251 H (70-99) mg/dl POC Glucose (70-99) Estimat Average Glucose 252 mg/dl Hemoglobin A1c 10.4 H (4.5-5.6) % Calcium 8.9 (8.5-10.1) mg/dl Phosphorus (2.5-4.9) mg/dl Magnesium (1.8-2.4) mg/dl Total Bilirubin 0.5 (0.2-1) mg/dl Direct Bilirubin (0-0.2) mg/dl AST 11 L (15-37) U/L ALT 45 (12-78) U/L Alkaline Phosphatase 84 (45-117) U/L Total Protein 6.7 (6.4-8.2) gm/dl Albumin 3.1 L (3.4-5.0) gm/dl Globulin 3.6 (2.5-4.0) gm/dl Albumin/Globulin Ratio 0.9 (0.9-2) Triglycerides 163 H (0-150) mg/dl Cholesterol 181 (0-200) mg/dl LDL Cholesterol, Calc 115 mg/dl VLDL Cholesterol, Calc 33 mg/dl HDL Cholesterol 33 mg/dl Cholesterol/HDL Ratio 6 Beta-Hydroxybutyric Acd (0.2-2.81) mg/dl Prolactin ng/ml 05/12/19 05/12/19 05/12/19 Range/Units 20:48 17:10 16:45 WBC (4.8-10.8) K/uL RBC (4.2-5.4) M/uL Hgb (12.0-16.0) g/dL Hct (37-47) % MCV (80-100) fL MCH (25-34) pg MCHC (32-36) g/dL RDW Std Deviation (36.4-46.3) fL RDW Coeff of Rossana (11.5-14.5) % Plt Count (130-400) K/uL MPV (7.4-10.4) fL Immature Gran % (Auto) % Neut % (Auto) % Lymph % (Auto) % [place] % (Auto) % Eos % (Auto) % Baso % (Auto) % Immature Gran # (Auto) (0.00-0.02) K/uL Neut # (Auto) (1.4-6.5) K/uL Lymph # (Auto) (1.2-3.4) K/uL [place] # (Auto) (0.11-0.59) K/uL Eos # (Auto) (0-0.5) K/uL Baso # (Auto) (0-0.2) K/uL Sodium 137 (136-145) mmol/L Potassium 4.0 (3.5-5.1) mmol/L Chloride 104 (98-107) mmol/L Carbon Dioxide 24 (21-32) mmol/L Anion Gap 8.0 (3-11) BUN 16 (7-18) mg/dl Creatinine 0.85 (0.6-1.2) mg/dl Est Cr Clr Drug Dosing 82.2 ml/min Est GFR ( Amer) 92.6 Est GFR (Non-Af Amer) 79.9 BUN/Creatinine Ratio 18.3 (10-20) Glucose 357 H* (70-99) mg/dl POC Glucose 219 H 367 H* (70-99) Estimat Average Glucose mg/dl Hemoglobin A1c (4.5-5.6) % Calcium 9.1 (8.5-10.1) mg/dl Phosphorus 3.1 (2.5-4.9) mg/dl Magnesium 1.8 (1.8-2.4) mg/dl Total Bilirubin 0.7 (0.2-1) mg/dl Direct Bilirubin < 0.1 (0-0.2) mg/dl AST 15 (15-37) U/L ALT 57 (12-78) U/L Alkaline Phosphatase 100 (45-117) U/L Total Protein 7.5 (6.4-8.2) gm/dl Albumin 3.6 (3.4-5.0) gm/dl Globulin 3.9 (2.5-4.0) gm/dl Albumin/Globulin Ratio 0.9 (0.9-2) Triglycerides (0-150) mg/dl Cholesterol (0-200) mg/dl LDL Cholesterol, Calc mg/dl VLDL Cholesterol, Calc mg/dl HDL Cholesterol mg/dl Cholesterol/HDL Ratio Beta-Hydroxybutyric Acd 0.95 (0.2-2.81) mg/dl Prolactin ng/ml 05/12/19 Range/Units 16:45 WBC 6.85 (4.8-10.8) K/uL RBC 5.51 H (4.2-5.4) M/uL Hgb 15.5 (12.0-16.0) g/dL Hct 44.6 (37-47) % MCV 80.9 (80-100) fL MCH 28.1 (25-34) pg MCHC 34.8 (32-36) g/dL RDW Std Deviation 38.6 (36.4-46.3) fL RDW Coeff of Rossana 13.2 (11.5-14.5) % Plt Count 151 (130-400) K/uL MPV 9.7 (7.4-10.4) fL Immature Gran % (Auto) 0.1 % Neut % (Auto) 67.8 % Lymph % (Auto) 21.8 % [place] % (Auto) 9.5 % Eos % (Auto) 0.7 % Baso % (Auto) 0.1 % Immature Gran # (Auto) 0.01 (0.00-0.02) K/uL Neut # (Auto) 4.64 (1.4-6.5) K/uL Lymph # (Auto) 1.49 (1.2-3.4) K/uL [place] # (Auto) 0.65 H (0.11-0.59) K/uL Eos # (Auto) 0.05 (0-0.5) K/uL Baso # (Auto) 0.01 (0-0.2) K/uL Sodium (136-145) mmol/L Potassium (3.5-5.1) mmol/L Chloride (98-107) mmol/L Carbon Dioxide (21-32) mmol/L Anion Gap (3-11) BUN (7-18) mg/dl Creatinine (0.6-1.2) mg/dl Est Cr Clr Drug Dosing ml/min Est GFR ( Amer) Est GFR (Non-Af Amer) BUN/Creatinine Ratio (10-20) Glucose (70-99) mg/dl POC Glucose (70-99) Estimat Average Glucose mg/dl Hemoglobin A1c (4.5-5.6) % Calcium (8.5-10.1) mg/dl Phosphorus (2.5-4.9) mg/dl Magnesium (1.8-2.4) mg/dl Total Bilirubin (0.2-1) mg/dl Direct Bilirubin (0-0.2) mg/dl AST (15-37) U/L ALT (12-78) U/L Alkaline Phosphatase (45-117) U/L Total Protein (6.4-8.2) gm/dl Albumin (3.4-5.0) gm/dl Globulin (2.5-4.0) gm/dl Albumin/Globulin Ratio (0.9-2) Triglycerides (0-150) mg/dl Cholesterol (0-200) mg/dl LDL Cholesterol, Calc mg/dl VLDL Cholesterol, Calc mg/dl HDL Cholesterol mg/dl Cholesterol/HDL Ratio Beta-Hydroxybutyric Acd (0.2-2.81) mg/dl Prolactin ng/ml Diagnostic Findings MR brain seizure wo/w con IMPRESSION: 1. Several foci of increased diffusion signal primarily within the right cerebral hemisphere as described. 2. At least 2 demonstrate postcontrast enhancement which may be indicative of subacute foci of infarction, versus the possibility of active foci edema of demyelination. 3. Additional foci of increased signal within the periventricular and deep white matter regions show no abnormal postcontrast enhancement. 4. Differential considerations must include subacute infarct of a variety of ages, combined with chronic small vessel change, a demyelinating disorder with several active foci of demyelination, with the possibility of a metastatic process or other etiology impossible to entirely exclude. CT angio neck with con, CT angio head w con IMPRESSION: 1. Moderate mixed plaque of the bilateral carotid bulbs results in 60% luminal narrowing at the origin of the right ICA and less than 50% stenosis on the left. 2. Mild multifocal luminal narrowing of the bilateral middle cerebral arteries. 3. Short segment of high-grade stenosis involves the distal V4 segment left vertebral artery. 4. 3 mm saccular outpouching involving the inferior wall of the proximal V3 segment right vertebral artery suggests small aneurysm. 5. Mild multifocal luminal narrowing of the posterior circulation. PCXR IMPRESSION: Low lung volumes with no active disease in the chest. EEG Awake/Drowsy In summary, this EEG was normal during wakefulness and light sleep. No focal abnormalities, potentially epileptogenic discharges, or abnormal slow activity was seen. PG Care Time/CCT Total # of Minutes Spent Total Time Spent with Patient: Total time spent is greater than 50% in coordination of care (as documented) at patient's floor/unit and/or counseling patient: Critical Care Time: Yes Total Critical Care Time: 60
[2019-05-13] MEDS: INSULIN GLARGINE SOLOSTAR 100 UNITS/ML 3 ML PEN SC SCH (17:23)
[2019-05-13] MEDS ORDERED: ATORVASTATIN 40 MG TAB PO SCH (21:00)
[2019-05-14 06:31] LABS: Hematocrit (blood only) 44.1 % (37-47); Hemoglobin 14.8 g/dL (12.0-16.0); Mean Corpuscular Hemoglobin 27.9 pg (25-34); Mean Corpuscular Hgb Conc 33.6 g/dL (32-36); Mean Corpuscular Volume 83.2 fL (80-100); Mean Platelet Volume 9.9 fL (7.4-10.4); Platelet Count 171 K/uL (130-400); RDW Coefficient of Variation 13.3 % (11.5-14.5); RDW Standard Deviation 39.8 fL (36.4-46.3); White Blood Count 6.39 K/uL (4.8-10.8)
[2019-05-14 07:12] LABS: Albumin Level 3.2 gm/dl (3.4-5.0); BUN Creatinine Ratio 37.1 (10-20); Calcium 9.4 mg/dl (8.5-10.1); Creatinine Clr Calc Pharmacy 122.6 ml/min; Est GFR (African American) 125.3; Est GFR (Non-African American) 108.1; Potassium 4.1 mmol/L (3.5-5.1)
[2019-05-14 07:15] LABS: Albumin Globulin Ratio 0.8 (0.9-2); Bilirubin,Total 0.5 mg/dl (0.2-1); Globulin 3.9 gm/dl (2.5-4.0); Total Protein 7.1 gm/dl (6.4-8.2)
--- NOTE | 2019-05-14 07:39 | Electrocardiogram Report ---
Test Reason : Blood Pressure : / mmHG Vent. Rate : 086 BPM Atrial Rate : 086 BPM P-R Int : 162 ms QRS Dur : 084 ms QT Int : 376 ms P-R-T Axes : 064 -10 018 degrees QTc Int : 449 ms Normal sinus rhythm Poor R wave progression, consider anterior CO vs. lead placement vs. LVH No previous ECGs available Confirmed by Roderick Crockett ([id number]) on 05/14/2019 7:39:43 AM Referred By: NO PCP Confirmed By:Orlando Crockett
[2019-05-14] MEDS ORDERED: SODIUM CHLORIDE 0.9% 1000ML 1,000 ML IV SCH (07:45)
[2019-05-14 08:11] VITALS: TEMP 98.4; O2SAT 93
[2019-05-14] MEDS: INSULIN ASPART 100 UNITS/ML 3 ML PEN SC SCH ×2 (09:05→12:56)
[2019-05-14] MEDS: METOPROLOL TARTRATE 100 MG TAB PO SCH (09:06)
[2019-05-14] MEDS: INSULIN GLARGINE SOLOSTAR 100 UNITS/ML 3 ML PEN SC SCH (09:06)
[2019-05-14] MEDS: ASPIRIN 81 MG ECTAB PO SCH (09:06)
--- NOTE | 2019-05-14 09:25 | Neurology Progress Note ---
Date of Service May 14, 2019 Assessment & Plan (1) Acute CVA (cerebrovascular accident): (2) Seizure: (3) Carotid stenosis, bilateral: (4) Chronic cerebral ischemia: (5) Hypertension: (6) Diabetes: This patient has acute and subacute small cerebral vascular accidents in the right hemisphere: one in the middle cerebral artery territory and the other in the posterior cerebral artery territory. The timing of these is not clear , but the 1 with enhancement is likely subacute and 1 without enhancement is likely acute. She has no clinical accompaniment with these as her neurologic examination shows no focal neurologic signs, meningeal signs, or encephalopathy. Patient had 3 episodes May 12 that were called seizures. Although I cannot exclude partial seizure events stemming from her cerebral vascular disease, I am not convinced the spells were actually epileptogenic. She had a 4th spell at 10 o'clock in the morning May 13. She was initiated on levetiracetam. EEG May 13 was normal awake and light sleep. There are no focal findings or potentially epileptogenic discharges. Patient has significant vascular stenoses in the carotids and vertebrals bilaterally. The etiology of the strokes may be thromboembolic from the right carotid (and/or right vertebral) system. She has some arterial stenoses in the vessels of the head as well (including the M1 segment on the right). 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 This is tiny and likely low risk for creating bleeding or other neurologic issues. She has mild diffuse old small vessel ischemic changes on MRI. I do not believe the MRI is education courses sales representative of demyelinating disease (she these lesions are not consistent with this and she has no clinical history to support demyelinating disease). Metastases cannot be ruled out but these lesions do not have any edema or other characteristics. She has no history of cancer. Patient has multiple risk factors for stroke, including hypertension, diabetes, cigarette smoking, and dyslipidemia. Recommendations: 1. Continue 81 mg aspirin tablet daily. 2. Continue levetiracetam 500 milligrams twice daily.. 3. Control blood pressure as you are doing, aiming for a mean arterial pressure of 95-100. 4. Controlled glucose better attempting to lower the hemoglobin A1c closer to 7.5 (initially). 5. Patient would be high dose statin candidate. Continue atorvastatin 40 milligrams daily. 6. Discontinue cigarette smoking. 7. I see no need for an LP or any other neurologic test at this time. 8. She would need a follow-up MRI of the brain with/without contrast in 2 months to see the evolution of these lesions. I would be happy to see her as an outpatient for follow-up in 3-4 weeks. Otherwise follow-up in the next week with her primary care physician. Overall, I spent a total of 35 minutes with this case, including review of records, direct evaluation the patient at bedside, and discussion of the case with the patient at bedside, RN at bedside, and Layla Tello PA-C, including differential diagnosis and treatment options. Subjective Feels better today. She has had no headaches or confusion.She has no weakness or numbness. Echocardiogram shows moderate left ventricular hypertrophy and no other abnormalities. CBC and Chem profile were unremarkable although the glucose is still elevated. Chest x-ray was unremarkable. Blood pressure today was 112/69. Physical Exam Physical Exam: The patient is awake and alert, with normal speech and communication. Mood and affect are normal appropriate. Thought processes are intact. Extraocular eye muscles are intact without nystagmus. Stance is normal sitting up in bed. Coordination of the arms is normal without tremor or ataxia. Motor strength is 5/5 in all major muscle groups of the arms and legs bilaterally, both proximally and distally. Results & Data Vital Signs (Past 12 Hours) Vital Signs Temp Pulse Pulse Resp BP BP Pulse Ox 05/14/19 08:00 36.9 C 92 H 18 112/69 93 05/14/19 02:02 80 05/13/19 23:41 36.7 C 76 15 114/69 95 PG Care Time/CCT Total # of Minutes Spent Total Time Spent with Patient: Total time spent is greater than 50% in coordination of care (as documented) at patient's floor/unit and/or counseling patient:
--- NOTE | 2019-05-14 09:55 | Discharge Summary ---
Date of Service May 14, 2019 Admission HPI Per Admitting Provider This is a 49 yo F with PMHx of HTN, obesity, fibromyalgia, who presents as a direct admission from [facility] for acute onset of seizure disorder. Patient notes that she developed a blurred/fuzzy vision 1 night ago while she was working. 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 Patient notes that she was walking outside and developed acute onset of lightheadedness but does not remember much afterwards. This event was witnessed by a coworker who is not present. Patient was taken to the [place] ER where she was worked up with a CT of the head/brain which were reported to kee per ER attending from [facility]. They were in the works with getting her bed placement at [facility], and there were no beds available at [facility] due to high census, but the patient left AMA as "it was taking too long". In reports from outside hospital it is likely that the patient wanted to smoke at that point in time and that is when she left AMA. Upon leaving she was at home with her , and had recurrence of her symptoms where she had issues with her vision and cannot remember anything afterwards. She was brought back by ambulance to the [facility] and has been transferred to our facility as they do not have neurology, no beds available at other facilities. She reports that she is very tired currently, but is sitting in bed reading without difficulty. She denies any headache, lightheadedness, dizziness visual disturbances, nausea, vomiting or other myalgias or pains compared to her baseline. She reports taking 600 to 800 mg of ibuprofen upwards of every 4 hours at home. She denies any GI bleeding hx. patient denies any history of seizure disorder in the past. She does run report that she has been struggling with high blood pressure intermittently over the last month. SBP = 160-180 over DBP = 100, she has been using metoprolol tartrate 100 mg twice daily and HCTZ as needed. her PCP has been concerned for renal issues, and has been scheduled for outpatient renal ultrasound for further evaluation. The patient is hungry and requesting chocolate milk, she is also very adamant that she needs to smoke a cigarette currently. She reports that "I will smoke a cigarette" and is unwilling to comply with hospital rules and use a nicotine patch despite my conversation with her-this included that [facility] is a smoke-free facility, it would be unsafe for her with history of seizures to walk outside the hospital and smoke a cigarette, and that she cannot have a family member walked her off the premises and then come back to complete her work-up for seizure. She in fact is so upset with me at the end of our conversation that she got up and walked into the bathroom, told me to leave, and will not open the door. I discussed with nursing that she is allowed to have a diet whenever she chooses to do so and that I will order a nicotine patch so that it is available if she chooses to use it. Admission Exam Per Admitting Provider General: awake, alert, no apparent distress, + obese Head: Normocephalic, atraumatic ENT: PERRL, EOMI, no pharyngeal exudate, mucous membranes moist Chest: Diminished breath sounds on auscultation but no adventitious sounds,, on room air Cardiac: Regular rate and rhythm, no murmur, no JVD, normal peripheral pulses, good capillary refill Abdominal: NABS x 4 quadrants, soft, nontender to palpation, no rebound, guarding or tenderness Extremities: Normal inspection, no peripheral edema or erythema, calfs nontender to palpation Psych: Normal mood and affect Neuro: AAO x 3, strength intact bilaterally and related 5/5, no motor deficits, speech is clear, no peripheral sensory deficits Skin: no rash or erythema Principal Diagnosis Acute vs subacute CVA with resulting seizure like activity Discharge Exam Constitutional WD/WN, vitals as above no acute distress ENMT external ear and nose normal, oropharynx normal Neck trachea midline, no thyromegaly Respiratory normal respiratory effort, lungs clear to auscultation Cardiovascular RRR, no murmur, no edema Gastrointestinal (Abdomen) normal bowel sounds, soft, nontender, no hepatosplenomegaly Musculoskeletal no cyanosis or clubbing, extremities motor strength 5/5 Skin no rashes, warm and dry Neurologic patellar DTR's 2+ bilat, sensation intact Psychiatric A+Ox3, euthymic affect Lymphatic no cervical or axillary lymphadenopathy Discharge Data Allergies Allergy/AdvReac Type Severity Reaction Status Date / Time egg Allergy Unknown Unknown Verified 05/12/19 16:44 Consultations 05/12/19 16:20 Consult Case Management - Discharge Planning Routine 05/13/19 00:17 Consult Neurology Routine Ordered Studies 05/12/19 16:54 MR brain seizure wo/w con Stat 05/13/19 00:17 CT angio head w con Urgent CT angio neck with con Urgent 05/13/19 CXR 05/13/19 ECHO Hospital Course (1) Seizure: * Patient reports never having seizure-like activity in the past, presented with postictal fatigue * Epileptogenic vs thromboembolic acute/subacute vascular accident suspected * Neurology consulted for 3 seizure like events which occurred within the past 24 hours-- EEG ordered this morning -- no focal abnormalities (although unable to exclude partial seizure events stemming from cerebral vascular disease) * --->> initially not started on Keppra, but initiated following repeat event afternoon of 05/13/19, initiated Keppra 500mg BID -- if another event occurs, would need to have 24 hour EEG at tertiary center * Seizure precautions maintained * EKG -- NSR, 80-90s on telemetry * CT Head/Neck, MRI brain --> acute and subacute small cerebral vascular accidents in the right hemisphere, 1 in the middle cerebral artery territory and the other in the posterior cerebral artery territory. 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 This is tiny and likely low risk for creating bleeding or other neurologic issues. She has mild diffuse old small vessel ischemic changes on MRI. --> Aneursym WILL NEED MONITORED OUTPATIENT * Lipid panel-- Cholesterol wnl, although triglycerides elevated at 163 -- given findings/plaque on imaging and recommendations from Neuro, initiated statin therapy -- atorvastatin 40mg, given patient not willing to do high dose d/t side effects and already with diffuse myalgias * Tox screen negative * Continued daily ASA 81mg * Prolactin obtain post-seizure 4.53ng/ml (2) Acute CVA (cerebrovascular accident): * Likely cause of #1 * PT/OT evaluations * Passed dysphagia screening, NIH of zero -- formal speech evaluation not indicated prior to discharge (3) Diabetes: * Hold home Trulicity * SSI while inpatient * A1c 10.4 -- para educator -- patient unable to tolerate metformin, Januvia in the past, per patient --> she had been on insulin in the past when she followed with Dr. Wellington, but states "it didn't help much" and she had been unable to obtain a glucometer as it is not covered by her insurance * Pharmacy consult -- tightened CF/CR to 20/7, added lantus 20units daily (4) Hypertension: * Continued metoprolol 100mg BID * Given 1x HCTZ -- patient takes prn as outpatient * Given DM, if BP continues to be elevated, patient may benefit from LEONEL/ARB vs her prn hctz --> will defer to PCP as outpatient (5) Obesity: * Diet and exercise to be encouraged upon discharge * BMI = 36 (6) Tobacco abuse disorder: * Smoking cessation encouraged * Nicotine gum or patch encouraged (7) Fibromyalgia: * Previously tried cymbalta but she reports "did not like the way it made me feel, it messed with my head" * Held ibuprofen as was taking very high dose as outpatient routinely. May have tylenol as needed for pain -- per patient, she had been told to avoid that in the past because her liver ezymes were elevated -- continued to be wnl * May want to repeat LFTs as outpatient in next 3 months per PCP after initiation of statin therapy (8) Chronic cerebral ischemia: * As above * Repeat MRI in 2 months to assess progression of findings during admission as above (9) Carotid stenosis, bilateral: * As shown on imaging * Initiated atorvastatin 40mg * Smoking cessation * Rec follow up per primary care provider (10) DVT prophylaxis: * Teds while inpatient * Ambulation encouraged Discharged home with daughter. Follow up with PCP and Neurology. Repeat MRI in 2 months. Total Time Total Time Spent Total Time Spent (In Minutes): 100 Discharge Plan Discharge Items Patient Disposition: Home - Self-Care Reason For Visit: SEIZURE Discharge Diagnosis: Suspected Seizure activity likely due to small stroke (CVA) Goals: You have been hospitalized for an acute medical problem. During your stay at [facility], we have made an effort to correct the problem that brought you to the hospital while keeping you as comfortable as possible. Medications were used to bring your condition under control and your discharge instructions will include directions for any medications you should take after leaving the hospital. Please make sure you see your Primary Care Provider as part of your follow up plan. Activity: Resume your previous activity Non-emergency contact: Primary Care Provider Call non-emergency contact if: you have any medication questions and your symptoms worsen Follow-up/Referrals: Edgar Stone III, MD [Physician] - Vitaliy Hill [Outside Practitioners] - 05/18/19 3:00 pm (Please, follow up with Dr. Hill on ThursdayMay 18 at 3:00 pm. *This appointment will be in the [place] office. If you need to change this appointment, call the office at [phone].) Diet: Carb Consistent or DM2 and Heart Healthy Addtl Attending Provider Instructions: You have been hospitalized for seizure like activity that may have been due to small strokes found on your imaging. Due to this, it is recommended that you follow up with MRI as detailed below, as well as follow up with Neurology in 3 weeks, also detailed below. The following medication changes have been made: NEW-- * Atorvastatin 40mg, by mouth, daily -- this is for cholesterol/lipid lowering. It was found that you do have some plaque build up found on imaging, which is treated with these medications, called "statins". As discussed, you may want to take this before bedtime to prevent adverse side effects such as muscle aches/cramps. Your triglycerides were also found to be elevated, and you may want to ask Dr. Hill about diet/exercise vs. starting a medication like gemfibrozil. You should also have repeat labs to monitor liver function since starting the atorvastatin. This should be ordered by your primary care provider in the next 3 months. * Keppra (levetiracetam) 500mg by mouth, TWICE daily -- this is a medication used to prevent seizures, and may be increased as needed * Aspirin 81mg daily Changes: * Hydrochlorothiazide -- you were taking 25mg as needed prior to hospitalization -- You received a dose yesterday as well. * --> Cut in half, so that you are taking 12.5mg DAILY, instead of taking as needed prior to hospitalization. You should take your blood pressure at home during this time, and may be able to decrease this to 12.5mg as needed if your blood pressure remain acceptable. Continue your metoprolol 100mg twice daily as you were taking as an outpatient. You may follow up with Dr. Stone (Neurologist) in 3 weeks. You should be called with an appointment sometime on Thursday, but if you do not hear back, you may want to call their office at [phone]. It is recommended that you have an MRI of the brain with/without contrast in 2 months to monitor the progression of findings on imaging. Recommend smoking cessation. You may wish to seek assistance through patches, or nicotine gum, but it is highly recommended to quit all tobacco use to prevent complications with your health. With regards to your diabetes, it is recommended that with the recent elevation of your Hemoglobin A1c (this number that measures average blood sugar levels over a three month period of time) was 10.4% and that you should be initiated on a newer glycemic agent or possibly back on insulin, and should discuss this with Dr. Hill at your office visit, scheduled for May 18. Please return the closest emergency department if your symptoms recur, or for any symptoms that are concerning for you. It has been a pleasure being a part of the care team providing for you during your hospitalization. Take care! . Addtl [employer] Provider Instructions: Risk Factors for Stroke: You can reduce your chances of stroke by working with your medical provider to adopt a healthy lifestyle. Some specific ways to lower your chance of stroke are: * If you are a smoker, now is the time to stop smoking cigarettes * If you are diabetic, improve the control of your blood sugars * Avoid excessive amounts of alcohol * Control high blood pressure * Lose weight if you are overweight * Be sure to lead an active lifestyle * Eat a healthy diet low in salt, cholesterol and fat You should know about other risk factors for stroke that you are unable to control. These include: * Age 55 years or older * Male gender * Certain racial groups: , or / * Family History of Stroke, Mini stroke or Heart Attack * Sickle Cell Disease Follow Up: It is important for you to keep your follow up appointments with your medical provider. Who to Call and When: Medical Emergencies: Call 911 immediately if you experience any of the following warning signs and symptoms of Stroke: * Sudden numbness or weakness of the face, arm or leg, especially on one side of the body * Sudden confusion, trouble speaking or understanding * Sudden trouble seeing in one or both eyes * Sudden trouble walking, dizziness, loss of balance or coordination * Sudden severe headache with no cause Do not delay calling 911 if you experience any warning signs or symptoms of a stroke. Delay in seeking medical attention may affect what treatments can be given to you. Pending Studies at Discharge: No Stand-Alone Forms: My [facility], Work/School Release (Inpt), Smoking Cessation Medications and DC Order Prescriptions: New atorvastatin 40 mg Tablet 40 mg PO HS 30 Days Qty: 30 RF: 0 metoprolol tartrate 100 mg Tablet 100 mg PO BID Qty: 60 RF: 0 aspirin [Ecotrin Low Strength] 81 mg Tablet,Delayed Release (Dr/Ec) 81 mg PO DAILY 30 Days Qty: 30 RF: 0 levetiracetam [Keppra] 500 mg tablet 500 mg PO BID 30 Days Qty: 60 RF: 0 Continued metoprolol tartrate 100 mg Tablet 100 mg PO BID RF: 0 Trulicity 1.5 mg 1.5 mg subcut WK RF: 0 vit D3-folic [id number] RF: 0 Changed hydrochlorothiazide 25 mg 12.5 mg PO DAILY Qty: 0 RF: 0 Discontinued hydrochlorothiazide 25 mg 25 mg PO DAILY PRN (Reason: Blood Pressure) RF: 0 ibuprofen 600 MG 600 mg PO Q6 PRN (Reason: Pain) RF: 0 Discharge Orders: Discharge Order (Routine); Ordered 05/14/19 Ordered By: Layla Kong/Other Patient Handouts: Diabetes Retirement Complications, Diabetes Resources, Diabetes Type 2 Coping, Diabetes Healthy Meals, Diabetes Carbs, Diabetes Exercise Benefits, Diabetes Activity Tips, Diabetes Living Life, Diabetes Manage A1C Test Admission Data Admit Date/Time: 05/12/19 14:41 Attending Provider: Tom Norwood Admit Provider: Lucina Walden Primary Care Provider: Maria De Jesus Still. Other Providers: Edgar Stone III Other Interventions: Discharge Summary Assessment (RN) Last Done: 05/14/19 15:40 DC Date/Time DO NOT enter until pt leaves facility: 05/14/19 17:37 Supervising Physician Co-Signing Physician Notes Attending Attestation and Discharge note: Pt seen/examined, chart reviewed, discharge care plan d/w JANICE Tello. I agree w/ the gates components of her discharge documentation. 49yo female with obesity, T2DM, hyperlipidemia, tobacco use. Presented as transfer from [facility] due to altered mental status/spells concerning for stroke vs seizure vs other. On 05/13/19 patient had a "code purple" for altered mental status and eye deviation to the left with odd behavior. Event concerning for complex partial seizure. Seen by neurology before and after the above event - started on keppra 500mg BID for suspected seizures (EEG negative for seizure focus however). Underwent stroke work-up -- MRI brain indeed showed right-sided lesions suspicious for stroke/subacute stroke. Additional testing revealed significant atherosclerotic disease including carotid artery stenosis. Following initiation of keppra no further altered MS/eye deviation spells were seen. Patient initiated on statin, asa for secondary stroke prevention. STRONGLY ADVISED TO QUIT SMOKING. Patient will have neurology follow-up post-discharge in light of her suspected seizures in the midst of probable small strokes. exam: gen - NAD, obese eyes - PERRL; no nystagmus mouth - MMM heart - RRR, s1 s2 lungs - CTA b/l abd - soft NT ext - no edema neuro - strength 5/5 all 4 extremities; gait wnl Patient will need radiographic surveillance of vertebral artery aneurysm as found on imaging however this was not a player in her presentation or the strokes. Tom Norwood MD
[2019-05-14 15:44] VITALS: BP 114/69; PULSE 92
[2019-05-14] MEDS ORDERED: levETIRAcetam 500 MG TAB PO ONE (17:00)
[2019-05-14] MEDS ORDERED: levETIRAcetam 500 MG TAB PO SCH (17:00)
== END 2019-05-14 17:37 | disposition home or self-care (01) | DRG 66 ==
LOC: 2N 14:41 → SUATTDRO 14:41
DX: I72.6 Aneurysm of vertebral artery; Z79.84 Long term (current) use of oral hypoglycemic drugs; E78.1 Pure hyperglyceridemia; R56.9 Unspecified convulsions; R29.700 NIHSS score 0; F17.210 Nicotine dependence, cigarettes, uncomplicated; I10 Essential (primary) hypertension; Z79.899 Other long term (current) drug therapy; Z68.36 Body mass index [BMI] 36.0-36.9, adult; E66.9 Obesity, unspecified; E11.65 Type 2 diabetes mellitus with hyperglycemia; M79.7 Fibromyalgia; I63.133 Cerebral infarction due to embolism of bilateral carotid arteries